=== PATIENT | male | born 1940 | race Two or more races ===

== ENCOUNTER 2021-11-11 14:05 | Emergency (ER) | payer OTHER ==
[~2021-11-11] VITALS: Ht 170.2 cm; Wt 72.6 kg
== END 2021-11-11 23:46 | disposition home or self-care (01) ==
LOC: ER 14:05
DX: E86.0 Dehydration (principal); R50.9 Fever, unspecified; R53.81 Other malaise; Z03.818 Encounter for observation for suspected exposure to other biological agents ruled out; R05.9 Cough, unspecified

== ENCOUNTER 2021-11-16 03:34 | Inpatient (IN) | payer OTHER ==
[~2021-11-16] VITALS: Ht 170.2 cm; Wt 56.7 kg
[2021-11-29] MEDS ORDERED: CETIRIZINE HCL10 MG (08:39)
[2021-11-29] MEDS ORDERED: EZETIMIBE10 MG (08:39)
[2021-11-29] MEDS ORDERED: CANDESARTAN CILE8 M1 (08:39)
[2021-11-29] MEDS ORDERED: MONTELUKAST SOD10 MG (08:39)
[2021-11-29] MEDS ORDERED: ATORVASTATIN CA10 MG (08:39)
== END 2021-11-30 03:49 | disposition expired | DRG 208 ==
LOC: ER 03:34 → SEC-K 12:51 → MEDJ 12:51 → ICU 11-22 05:21
PROVIDERS: ADMIT Internal Medicine; ATTEND Internal Medicine
PROC: XW033E5 Introduction of Remdesivir Anti-infective into Peripheral Vein, Percutaneous Approach, New Technology Group 5 (ICD-10-PCS; 2021-11-16)
PROC: 8E0ZXY6 Isolation (ICD-10-PCS; 2021-11-16)
PROC: 4A12X4Z Monitoring of Cardiac Electrical Activity, External Approach (ICD-10-PCS; 2021-11-17)
PROC: B24BZZZ Ultrasonography of Heart with Aorta (ICD-10-PCS; 2021-11-19)
PROC: 5A1945Z Respiratory Ventilation, 24-96 Consecutive Hours (ICD-10-PCS; principal; 2021-11-21)
PROC: 0BH17EZ Insertion of Endotracheal Airway into Trachea, Via Natural or Artificial Opening (ICD-10-PCS; 2021-11-21)
PROC: 02HV33Z Insertion of Infusion Device into Superior Vena Cava, Percutaneous Approach (ICD-10-PCS; 2021-11-24)
DX: U07.1 COVID-19 (principal); J80 Acute respiratory distress syndrome; J12.82 Pneumonia due to coronavirus disease 2019; N17.8 Other acute kidney failure; R53.1 Weakness; E86.0 Dehydration; E87.8 Other disorders of electrolyte and fluid balance, not elsewhere classified; I25.10 Atherosclerotic heart disease of native coronary artery without angina pectoris; I10 Essential (primary) hypertension; J44.9 Chronic obstructive pulmonary disease, unspecified; Z95.0 Presence of cardiac pacemaker; Z74.01 Bed confinement status